=== PATIENT | female | born 1985 | race Caucasian/White ===

== ENCOUNTER → 2017-10-04 | Outpatient (CLI) | payer OTHER ==
[~2017-10-04] MED LIST: MELO15TA6 PO
--- NOTE | 2017-10-04 16:00 | KCIC ---
Indication: Chronic left heel pain. Time of exam 3:37 PM 2 views of the left calcaneus were obtained. The subtalar joint is unremarkable. No calcaneus fracture or stress reaction is identified. The soft tissues are unremarkable. IMPRESSION: No acute feature is detected. Electronically signed by: Maverick Kramer MD (10/04/2017 3:57 PM) [id number]
== END | disposition home or self-care (01) ==
LOC: KCIC 15:20
PROVIDERS: ATTEND Nurse Practitioner Family
DX: M79.672 Pain in left foot (principal)
CPT/HCPCS: 73650

== ENCOUNTER → 2017-12-21 | Outpatient (CLI) | payer OTHER ==
[2017-12-21 08:15] LABS: ADD MAN DIFF? NO
[2017-12-21 08:32] LABS: BASO % 1 % (0-3); EOS # 0.2 x10^3/uL (0.0-0.7); EOS % 3 % (0-3); HEMATOCRIT 38.6 % (36.0-47.0); LYMPH # 2.8 x10^3/uL (1.0-4.8); LYMPH % 37 % (24-48); MEAN CORPUSCULAR HEMOGLOBIN 29 pg (25-35); MEAN CORPUSCULAR HGB CONC 34 g/dL (31-37); MEAN CORPUSCULAR VOLUME 85 fL (79-100); MONO # 0.5 x10^3/uL (0.0-1.1); MONO % 6 % (0-9); NEUT # 4.2 x10^3uL (1.8-7.7); NEUT % 54 % (31-73); PLATELET COUNT 243 x10^3/uL (140-400); RED BLOOD COUNT 4.52 x10^6/uL (3.50-5.40); RED CELL DISTRIBUTION WIDTH 14.1 % (11.5-14.5); WHITE BLOOD COUNT 7.7 x10^3/uL (4.0-11.0)
[2017-12-21 08:51] LABS: ALBUMIN 3.3 g/dL (3.4-5.0); ALBUMIN/GLOBULIN RATIO 0.8 (1.0-1.7); ALK PHOS 68 U/L (46-116); ALT (SGPT) 18 U/L (14-59); ANION GAP 9 (6-14); AST (SGOT) 14 U/L (15-37); BLOOD UREA NITROGEN 15 mg/dL (7-20); BUN/CREATININE RATIO 19 (6-20); CALCIUM 8.3 mg/dL (8.5-10.1); CARBON DIOXIDE 25 mmol/L (21-32); CHLORIDE 107 mmol/L (98-107); CHOLESTEROL 171 mg/dL (0-200); CREATININE 0.8 mg/dL (0.6-1.0); GFR 82.1; GLUCOSE 95 mg/dL (70-99); HDLC 63 mg/dL (40-60); LDLC 79 mg/dL (0-100); NON-HDL CHOLESTEROL 108 mg/dL (0-129); SODIUM 141 mmol/L (136-145); TOTAL BILIRUBIN 0.2 mg/dL (0.2-1.0); TOTAL PROTEIN 7.3 g/dL (6.4-8.2); TRIGLYCERIDES 143 mg/dL (0-150); VLDLC 29 mg/dL (0-40)
[2017-12-21 08:54] LABS: CHOLESTEROL/HDL RATIO 2.7
[2017-12-21 09:03] LABS: THYROID STIM HORMONE (TSH) 2.932 uIU/mL (0.358-3.74)
[2017-12-21 09:03] LABS: FREE T4 1.06 ng/dL (0.76-1.46)
[2017-12-21 09:05] LABS: VITAMIN-B12 538 pg/mL (247-911)
[2017-12-21 09:06] LABS: FOLATE 12.59 ng/ml (3.2-20.0)
[2017-12-21 16:55] LABS: % SAT IRON 11 % (15-34); IRON,SERUM 49 ug/dL (50-170)
== END | disposition home or self-care (01) ==
LOC: LAB 07:49
DX: R53.83 Other fatigue (principal); E11.9 Type 2 diabetes mellitus without complications
CPT/HCPCS: 36415; 80053; 80061; 82306; 82607; 82746; 83540; 83550; 84439; 84443; 85025

== ENCOUNTER → 2017-12-31 | Outpatient (CLI) | payer OTHER | END | disposition home or self-care (01) | LOC: KCIC MRI 15:51 | DX: M47.892 Other spondylosis, cervical region (principal); M50.20 Other cervical disc displacement, unspecified cervical region; G89.29 Other chronic pain | CPT/HCPCS: 72100; 72141 ==

== ENCOUNTER → 2018-01-04 | Outpatient (CLI) | payer OTHER ==
[~2018-01-04] MED LIST changes: +BUPIVACAINE MPF 0.25% 10 ML VIAL.; +IOHEXOL 180 MG/ML 10 ML VIAL.; -MELO15TA6 PO; +methylPREDNISolone ACETATE 80 MG/ML VIAL.
== END | disposition home or self-care (01) ==
LOC: PNCL 09:19
DX: M47.812 Spondylosis without myelopathy or radiculopathy, cervical region (principal); G89.29 Other chronic pain
CPT/HCPCS: 64490; 64491; J1040; J3490; Q9965

== ENCOUNTER → 2018-04-04 | Outpatient (CLI) | payer OTHER ==
[~2018-04-04] MED LIST changes: -BUPIVACAINE MPF 0.25% 10 ML VIAL.; +BUPIVACAINE MPF 0.25% 30 ML VIAL.; +LIDOCAINE 1% PF 2 ML VIAL.; +methylPREDNISolone ACETATE 40 MG/ML VIAL.
== END | disposition home or self-care (01) ==
LOC: PNCL 07:57
DX: M47.812 Spondylosis without myelopathy or radiculopathy, cervical region (principal); Z88.0 Allergy status to penicillin; Z88.1 Allergy status to other antibiotic agents
CPT/HCPCS: 64490; 64491; J1030; J1040; J3490; Q9965

== ENCOUNTER → 2019-01-23 | Outpatient (CLI) | payer OTHER ==
[~2019-01-23] MED LIST changes: -BUPIVACAINE MPF 0.25% 30 ML VIAL.; +CETI10TA22 PO; +CHOL100013 PO; +ERGO500027 PO; -IOHEXOL 180 MG/ML 10 ML VIAL.; +IRON1TAB30 PO; -LIDOCAINE 1% PF 2 ML VIAL.; +MELO15TA6 PO; +NOVA RING; -methylPREDNISolone ACETATE 40 MG/ML VIAL.; -methylPREDNISolone ACETATE 80 MG/ML VIAL.
== END | disposition home or self-care (01) ==
LOC: ONC 10:00
PROVIDERS: ATTEND Nurse Practitioner Family
DX: D50.9 Iron deficiency anemia, unspecified (principal); E55.9 Vitamin D deficiency, unspecified
CPT/HCPCS: 36415; 82306; 83540; 83550

== ENCOUNTER → 2019-07-21 | Outpatient (CLI) | payer OTHER ==
[2019-07-21 08:21] LABS: BASO # 0.1 x10^3/uL (0.0-0.2); BASO % 1 % (0-3); EOS # 0.2 x10^3/uL (0.0-0.7); EOS % 3 % (0-3); HEMATOCRIT 39.2 % (36.0-47.0); HEMOGLOBIN 13.3 g/dL (12.0-15.5); LYMPH # 2.1 x10^3/uL (1.0-4.8); LYMPH % 33 % (24-48); MEAN CORPUSCULAR HEMOGLOBIN 30 pg (25-35); MEAN CORPUSCULAR HGB CONC 34 g/dL (31-37); MEAN CORPUSCULAR VOLUME 88 fL (79-100); MONO # 0.3 x10^3/uL (0.0-1.1); MONO % 4 % (0-9); NEUT # 3.7 x10^3/uL (1.8-7.7); NEUT % 59 % (31-73); PLATELET COUNT 273 x10^3/uL (140-400); RED BLOOD COUNT 4.44 x10^6/uL (3.50-5.40); RED CELL DISTRIBUTION WIDTH 14.4 % (11.5-14.5); WHITE BLOOD COUNT 6.3 x10^3/uL (4.0-11.0)
[2019-07-21 08:56] LABS: CHOLESTEROL/HDL RATIO 2.7
[2019-07-21 09:03] LABS: FREE T4 1.14 ng/dL (0.76-1.46); THYROID STIM HORMONE (TSH) 2.785 uIU/mL (0.358-3.74)
[2019-07-21 17:09] LABS: ESTRADIOL LEVEL 23.1 pg/mL (.); FSH 4.3 mIU/mL (.); PROLACTIN 14.7 ng/mL (4.8-23.3)
== END | disposition home or self-care (01) ==
LOC: LAB 07:49
PROVIDERS: ATTEND Obstetrics & Gynecology
DX: Z01.419 Encounter for gynecological examination (general) (routine) without abnormal findings (principal); R63.5 Abnormal weight gain; R23.2 Flushing
CPT/HCPCS: 36415; 80061; 82670; 83001; 84146; 84439; 84443; 85025

== ENCOUNTER 2019-08-11 16:34 | Emergency (ER) | payer OTHER ==
[~2019-08-11] VITALS: Ht 167.6 cm; Wt 89.4 kg
[2019-08-11 17:23] LABS: BILIRUBIN,URINE NEGATIVE (NEG); CLARITY,URINE CLEAR; COLOR,URINE YELLOW; NITRITE,URINE NEGATIVE (NEG); PROTEIN,URINE NEGATIVE (NEG-TRACE); UROBILINOGEN,URINE 0.2 mg/dL (0.2 mg/dL)
[2019-08-11 17:29] LABS: BACTERIA,URINE FEW /HPF (0-FEW); RBC,URINE 0 /HPF (0-2); SQUAMOUS EPITHELIAL CELL,UR FEW /LPF; WBC,URINE OCC /HPF (0-4)
[2019-08-11] MEDS ORDERED: diphenhydrAMINE 50 MG/ML VIAL IVP ONE (17:45)
[2019-08-11] MEDS ORDERED: KETOROLAC 15 MG/ML VIAL. IV ONE (17:45)
[2019-08-11] MEDS ORDERED: PROCHLORPERAZINE 10 MG/2 ML VIAL. IV ONE (17:45)
[2019-08-11] MEDS ORDERED: IV NORMAL SALINE 1000ML BAG 1,000 ML IV ONE (17:45)
--- NOTE | 2019-08-11 18:15 | PHYS DOC ---
Past Medical History Past Medical History: No Pertinent History (REYES CHAUDHARY APRN) Past Surgical History: Appendectomy, Tonsillectomy (REYES CHAUDHARY APRN) Alcohol Use: Occasionally Drug Use: None (REYES CHAUDHARY APRN) Adult General Chief Complaint Chief Complaint: HEADACHE HPI HPI Patient is a 33 year old female who presents to the emergency department with complaints of a diffuse headache that she describes as sharp and diffuse. Patient states that she has had a headache since 11:00 this morning, she tried taking a gram of Tylenol at 1:30 PM with some relief of her symptoms. She denies any vision changes, difficulties with speech, vomiting, numbness, tingling, or weakness. She states she has experienced nausea and has felt lightheaded with the pain. Patient states that her entire body feels like it is tense. Currently she rates her pain a 8 out of 10 on the pain scale, there are no exacerbating factors. States she has been very thirsty since beginning the phentermine for weight loss. (REYES CHAUDHARY APRN) Review of Systems Review of Systems Constitutional: Denies fever or chills [] Eyes: Denies change in visual acuity, redness, or eye pain [] HENT: Denies nasal congestion or sore throat [] Respiratory: Denies cough or shortness of breath [] Cardiovascular: No additional information not addressed in HPI [] GI: Denies abdominal pain, vomiting, bloody stools or diarrhea; see HPI Musculoskeletal: Denies back pain or joint pain [] Integument: Denies rash or skin lesions [] Neurologic: Denies focal weakness or sensory changes; see HPI Endocrine: denies polydipsia Complete systems were reviewed and found to be within normal limits, except as documented in this note. (REYES CHAUDHARY APRN) Current Medications Current Medications Current Medications Medications (Trade) Dose Ordered Sig/Bala Start Time Stop Time Status Last Admin Dose Admin Diphenhydramine HCl (Benadryl) 25 mg 1X ONCE 08/11/19 17:45 08/11/19 18:03 DC 08/11/19 18:22 25 MG Ketorolac Tromethamine (Toradol 15mg Vial) 15 mg 1X ONCE 08/11/19 17:45 10/25/19 18:03 DC 08/11/19 18:20 15 MG Prochlorperazine Edisylate (Compazine) 10 mg 1X ONCE 08/11/19 17:45 08/11/19 18:03 DC 08/11/19 18:24 10 MG Sodium Chloride 1,000 ml @ 1,000 mls/hr 1X ONCE 08/11/19 17:45 08/11/19 18:44 DC 08/11/19 18:17 1,000 MLS/HR (DOMENIC TORRES DO) Allergies Allergies Allergies Coded Allergies Type Severity Reaction Last Updated Verified Penicillins Allergy Intermediate 01/17/16 Yes Sulfa (Sulfonamide Antibiotics) Allergy Intermediate Rash 01/17/16 Yes cefaclor Allergy Intermediate Rash 01/17/16 Yes erythromycin base Adverse Reaction Intermediate Nausea and Vomiting 01/17/16 Yes (DOMENIC TORRES DO) Physical Exam Physical Exam Constitutional: Well developed, well nourished, no acute distress, non-toxic appearance. [] HENT: Normocephalic, atraumatic, bilateral external ears normal, oropharynx moist, no oral exudates, nose normal. [] Eyes: PERRLA, EOMI, conjunctiva normal, no discharge. [] Neck: Normal range of motion, no stridor. [] Cardiovascular:Heart rate regular rhythm, no murmur [] Lungs & Thorax: Bilateral breath sounds clear to auscultation [] Skin: Warm, dry, no erythema, no rash. [] Back: No tenderness, no CVA tenderness. [] Extremities: No tenderness, no cyanosis, no clubbing, ROM intact, no edema. [] Neurologic: Alert and oriented X 3, normal motor function, normal sensory function, no focal deficits noted. [] Psychologic: Affect normal, judgement normal, mood normal. [] (REYES CHAUDHARY APRN) Current Patient Data Vital Signs Vital Signs Date Time Temp Pulse Resp B/P (MAP) Pulse Ox O2 Delivery O2 Flow Rate FiO2 08/11/19 19:01 79 96 08/11/19 17:00 98.2 20 127/93 (104) Room Air 98.2 (DOMENIC TORRES DO) Lab Values Laboratory Tests Test 08/11/19 16:40 08/11/19 18:00 Urine Collection Type Unknown Urine Color Yellow Urine Clarity Clear Urine pH 7.0 Urine Specific Theresa 1.010 Urine Protein Negative mg/dL (NEG-TRACE) Urine Glucose (UA) Negative mg/dL (NEG) Urine Ketones (Stick) 40 mg/dL (NEG) Urine Blood Negative (NEG) Urine Nitrite Negative (NEG) Urine Bilirubin Negative (NEG) Urine Urobilinogen Dipstick 0.2 mg/dL (0.2 mg/dL) Urine Leukocyte Esterase Negative (NEG) Urine RBC 0 /HPF (0-2) Urine WBC Occ /HPF (0-4) Urine Squamous Epithelial Cells Few /LPF Urine Bacteria Few /HPF (0-FEW) Urine Test Negative (NEG) White Blood Count 10.7 x10^3/uL (4.0-11.0) Red Blood Count 4.53 x10^6/uL (3.50-5.40) Hemoglobin 13.5 g/dL (12.0-15.5) Hematocrit 39.5 % (36.0-47.0) Mean Corpuscular Volume 87 fL (79-100) Mean Corpuscular Hemoglobin 30 pg (25-35) Mean Corpuscular Hemoglobin Concent 34 g/dL (31-37) Red Cell Distribution Width 13.2 % (11.5-14.5) Platelet Count 275 x10^3/uL (140-400) Neutrophils (%) (Auto) 76 % (31-73) H Lymphocytes (%) (Auto) 20 % (24-48) L Monocytes (%) (Auto) 4 % (0-9) Eosinophils (%) (Auto) 1 % (0-3) Basophils (%) (Auto) 0 % (0-3) Neutrophils # (Auto) 8.1 x10^3/uL (1.8-7.7) H Lymphocytes # (Auto) 2.1 x10^3/uL (1.0-4.8) Monocytes # (Auto) 0.4 x10^3/uL (0.0-1.1) Eosinophils # (Auto) 0.1 x10^3/uL (0.0-0.7) Basophils # (Auto) 0.0 x10^3/uL (0.0-0.2) Sodium Level 141 mmol/L (136-145) Potassium Level 4.0 mmol/L (3.5-5.1) Chloride Level 105 mmol/L (98-107) Carbon Dioxide Level 24 mmol/L (21-32) Anion Gap 12 (6-14) Blood Urea Nitrogen 10 mg/dL (7-20) Creatinine 0.8 mg/dL (0.6-1.0) Estimated GFR (Cockcroft-Gault) 81.6 BUN/Creatinine Ratio 13 (6-20) Glucose Level 94 mg/dL (70-99) Calcium Level 8.6 mg/dL (8.5-10.1) Magnesium Level 1.9 mg/dL (1.8-2.4) Total Bilirubin 0.3 mg/dL (0.2-1.0) Aspartate Amino Transferase (AST) 20 U/L (15-37) Alanine Aminotransferase (ALT) 23 U/L (14-59) Alkaline Phosphatase 63 U/L (46-116) Total Protein 7.5 g/dL (6.4-8.2) Albumin 3.6 g/dL (3.4-5.0) Albumin/Globulin Ratio 0.9 (1.0-1.7) L Laboratory Tests 08/11/19 18:00 Laboratory Tests 08/11/19 18:00 (DOMENIC TORRES DO) EKG EKG [] (REYES CHAUDHARY APRN) Radiology/Procedures Radiology/Procedures [] (REYES CHAUDHARY APRN) Course & Med Decision Making Course & Med Decision Making Pertinent Labs and Imaging studies reviewed. (See chart for details) dx: migraine 1858- Pt reports complete relief of sx after medications. She denies any complaints at this time. CT has not been completed, will cancel CT per PT request and since symptoms resolved completely. Pt instructed to stop taking Phentermine. Will prescribe Fiorcet prn Headaches. Follow up with Primary care doctor next week. Return to the ER if symptoms return. VSS PT verbalized an understanding of home care, medications, follow-up, and return to ED instructions and was in agreement with the plan of care. [] (REYES CHAUDHARY APRN) Dragon Disclaimer Dragon Disclaimer This electronic medical record was generated, in whole or in part, using a voice recognition dictation system. (REYES CHAUDHARY APRN) Departure Departure Impression: Primary Impression: Migraine Disposition: 01 HOME, SELF-CARE Condition: STABLE Referrals: MUMTAZ YEE APRN (PCP) Patient Instructions: Migraine Headache, [id number] Additional Instructions: Fill prescription and use as needed for pain. Follow up with your primary care doctor next week. STOP TAKING PHENTERMINE. Increase clear fluids, home to rest. Return to the ER if symptoms return or worsen. Scripts Butalb/Acetaminophen/Caffeine ([id number] 50-325-40) 1 Each Tablet 1-2 EACH PO Q4HRS PRN for PAIN MDD 6 tabs for 3 Days, #18 TAB 0 Refills Prov: REYES CHAUDHARY APRN 08/11/19 Attending Signature Attending Signature I have reviewed the PA/[employer] ATTENDANT's note and plan of care. I was available for consultation as needed during the patient's visit in the emergency department. I agree with the clinical impression, plan, and disposition. (DOMENIC TORRES DO) Problem Qualifiers Primary Impression: Migraine Migraine type: unspecified Status migrainosus presence: without status migrainosus Intractability: not intractable Qualified Codes: G43.909 - Migraine, unspecified, not intractable, without status migrainosus REYES CHAUDHARY APRN Aug 11, 2019 18:15 DOMENIC TORRES DO Aug 12, 2019 05:28
[2019-08-11 18:21] LABS: BASO % 0 % (0-3); EOS # 0.1 x10^3/uL (0.0-0.7); EOS % 1 % (0-3); HEMATOCRIT 39.5 % (36.0-47.0); HEMOGLOBIN 13.5 g/dL (12.0-15.5); LYMPH # 2.1 x10^3/uL (1.0-4.8); LYMPH % 20 % (24-48); MEAN CORPUSCULAR HEMOGLOBIN 30 pg (25-35); MEAN CORPUSCULAR HGB CONC 34 g/dL (31-37); MEAN CORPUSCULAR VOLUME 87 fL (79-100); MONO # 0.4 x10^3/uL (0.0-1.1); MONO % 4 % (0-9); NEUT # 8.1 x10^3/uL (1.8-7.7); NEUT % 76 % (31-73); PLATELET COUNT 275 x10^3/uL (140-400); RED BLOOD COUNT 4.53 x10^6/uL (3.50-5.40); RED CELL DISTRIBUTION WIDTH 13.2 % (11.5-14.5); WHITE BLOOD COUNT 10.7 x10^3/uL (4.0-11.0)
[2019-08-11 18:30] LABS: CALCIUM 8.6 mg/dL (8.5-10.1); CREATININE 0.8 mg/dL (0.6-1.0); GFR 81.6
[2019-08-11 18:35] LABS: ALBUMIN 3.6 g/dL (3.4-5.0); ALBUMIN/GLOBULIN RATIO 0.9 (1.0-1.7); MAGNESIUM 1.9 mg/dL (1.8-2.4); TOTAL BILIRUBIN 0.3 mg/dL (0.2-1.0); TOTAL PROTEIN 7.5 g/dL (6.4-8.2)
[2019-08-11 19:01] VITALS: BP 117/68
[2019-08-11 19:02] LABS: U PREG PATIENT NEGATIVE (NEG)
[2019-08-11] MEDS ORDERED: BUTA1TAB23 PO (19:08)
== END 2019-08-11 19:20 | disposition home or self-care (01) ==
LOC: ER 16:34
DX: G43.909 Migraine, unspecified, not intractable, without status migrainosus (principal); R42 Dizziness and giddiness; Z88.0 Allergy status to penicillin; Z88.1 Allergy status to other antibiotic agents; Z88.2 Allergy status to sulfonamides
CPT/HCPCS: 36415; 80053; 81001; 81025; 83735; 85025; 96361; 96374; 96375; 99284; J0780; J1200; J1885; J7030; 99285-25

== ENCOUNTER → 2020-10-04 | Outpatient (CLI) | payer OTHER ==
[~2020-10-04] MED LIST changes: +BUPIVACAINE MPF 0.25% 10 ML VIAL. ONE; +BUTA1TAB23 PO; -CETI10TA22 PO; +CETI10TA74 PO; +CYCL10TA2 PO; +SUMA100T4 PO; +methylPREDNISolone ACETATE 40 MG/ML VIAL. ONE
--- NOTE | 2020-10-04 12:37 | PDOC ---
Progress Note - Pain Clinic Date of Service: DOS: DATE: 10/04/20 TIME: 12:31 Diagnosis: Dx: Cervicalgia with cervical spondylosis Myofascial pain History or Present Illness: HPI: 35-year female returns follow-up status post right cervical facet injections March 2018. Patient ports did very well with near 100% improvement after the injections her chief complaint today however is a different pain in the base the neck and left shoulder and upper back patient reports is been going on for few months now not the result of any specific injury or accident that she is aware of but is becoming more uncomfortable difficulty with sleeping at night especially on her left side is waking her up from sleep also pain in the base of the neck and left upper back and shoulder posteriorly and superiorly. Patient reports is a 10 on scale 10 is worse over the past week 10 on average 7 its least is a 10 today patient wanted sharp and shooting tingling some in the left hand and shoulder as well as a burning sensation in the back of the neck and up per shoulder on the left stabbing and can be severe and very burning and hot feeling as well. Patient has been doing some stretching also has been chiropractic therapy and acupuncture done 3 times without significant reduction in pain for more than just an hour or 2. Patient ports no motor loss in the dropping of items or difficulty with deficits in the left upper extremity. Physical Exam: VS: Blood pressure is 132/70 pulse 76 respirations 18 temperature 90.1 F height is 5 foot 6 inches weight is 206 pounds PE: PHYSICAL EXAMINATION: GENERAL: The patient is awake, alert, oriented, appropriate, very pleasant demeanor HEENT: Shows normocephalic, atraumatic. Extraocular movements are intact and symmetrical. Oral cavity: Mucous membranes moist and pink. Dentition is intact. NECK: Shows anterior throat supple without palpable lymphadenopathy noted. Swallow reflex symmetrical. CHEST: Shows normal on inspection. Breath sounds are clear bilaterally, no r ales or rhonchi. HEART: Shows S1, S2 clear. No murmurs auscultated. ABDOMEN: Soft, nontender, nondistended, obese. No palpable organomegaly is noted. No rebound or guarding demonstrated. BACK: Shows spine grossly in the midline. Normal-appearing cervical lordotic curvature. Cervical paraspinous but shows symmetrical with inspection on palpation some very firm ropelike musculature more tender on the left than the right, but very firm ropelike musculature bilaterally consistent with areas of trigger point musculature. Patient's left trapezius shows similar areas of very firm ropelike musculature consistent with trigger point areas of muscle as well. Patient shows good rotation motion cervical spine however both laterally as well as extension flexion without significant increase in pain with some moderate pain with forward flexion and stretching in the left base of the neck and left upper shoulder. No radiation is demonstrated with palpation but very firm ropelike musculature in the left trapezius as well as the supraspinatus and the rhomboid musculature but nontender on the right in these muscle groups. There is slightly increased thoracic kyphosis, some minor flattening of the lumbar lordotic curvature. EXTREMITIES: Upper extremities show deep tendon reflexes 2+ in the biceps and tricep tendons. Motor exam is 5 on a scale of 5 with right rib strength, biceps and triceps flexion and 5/5 on the left. Peripheral pulses are 2+ radial. No peripheral edema is noted bilaterally. Upper extremities are warm and dry to touch, equal in color and appearance. SKIN: Shows warm and dry, good turgor. No edema. No sores, rashes or bruising throughout. Procedure: Procedure: Discussed with the patient. Patient chart was reviewed as her current medication regimen updated and current review of systems updated today as well. We will proceed with trigger point injections of the identified musculature. Risks were discussed including but not limited to bleeding infection possibility of intravascular injection sequelae spread local anesthetic and numbness pneumothorax side effects of steroid medication and poor results regarding pain control. Patient understands wished to proceed. Patient will return to clinic in approximately 2 weeks or as necessary and would like to call for next appointment as needed. Medication Injected: Med Injected: Under sterile prep and drape patient's neck and shoulders were sterilely prepped and trigger points were identified in the posterior cervical musculature bilaterally as well as the left trapezius left rhomboid and left supraspinatus musculature injected using a 25-gauge needle after negative aspiration each injection site with 1 cc of 0.25% bupivacaine and a total of 40 mg Depo-Medrol and 8 cc total of 0.25% bupivacaine. Patient tolerated procedure well and had no complications. Condition at Discharge: Condition at Discharge: Condition at discharge stable, patient alert procedure well and had no complications. MAXIMILIANO CONLEY MD Oct 04, 2020 12:37
== END | disposition home or self-care (01) ==
LOC: PNCL 11:19
PROVIDERS: ATTEND Anesthesiology
DX: M54.2 Cervicalgia (principal); M79.18 Myalgia, other site; M47.812 Spondylosis without myelopathy or radiculopathy, cervical region; E11.9 Type 2 diabetes mellitus without complications; D50.9 Iron deficiency anemia, unspecified; G43.909 Migraine, unspecified, not intractable, without status migrainosus; Z88.0 Allergy status to penicillin; Z88.2 Allergy status to sulfonamides; Z88.8 Allergy status to other drugs, medicaments and biological substances; Z88.1 Allergy status to other antibiotic agents; Z79.899 Other long term (current) drug therapy
CPT/HCPCS: 20553; J1030; J3490

== ENCOUNTER → 2021-04-22 | Outpatient (CLI) | payer OTHER ==
[~2021-04-22] MED LIST changes: -BUPIVACAINE MPF 0.25% 10 ML VIAL. ONE; +CALC600T60 PO; +CYCL10TA19 PO; -CYCL10TA2 PO; +MULT-245 PO; +OMEG1CAP38 PO; +PANT20TA2 PO; -methylPREDNISolone ACETATE 40 MG/ML VIAL. ONE
[2021-04-22 08:36] LABS: HEMATOCRIT 39.3 % (36.0-47.0); HEMOGLOBIN 13.4 g/dL (12.0-15.5); RED BLOOD COUNT 4.52 x10^6/uL (3.50-5.40); RED CELL DISTRIBUTION WIDTH 12.8 % (11.5-14.5); WHITE BLOOD COUNT 10.1 x10^3/uL (4.0-11.0)
[2021-04-22 08:56] LABS: ALBUMIN 3.6 g/dL (3.4-5.0); ALBUMIN/GLOBULIN RATIO 1.1 (1.0-1.7); CALCIUM 8.8 mg/dL (8.5-10.1); CREATININE 0.9 mg/dL (0.6-1.0); GFR 70.5; POTASSIUM 4.2 mmol/L (3.5-5.1); TOTAL BILIRUBIN 0.3 mg/dL (0.2-1.0)
[2021-04-22 08:57] LABS: CHOLESTEROL/HDL RATIO 3.9
[2021-04-22 09:33] LABS: FREE T4 1.22 ng/dL (0.76-1.46); THYROID STIM HORMONE (TSH) 2.344 uIU/mL (0.358-3.74)
== END ==
LOC: LAB 08:20
PROVIDERS: ATTEND Nurse Practitioner Family
DX: E55.9 Vitamin D deficiency, unspecified (principal); F41.9 Anxiety disorder, unspecified; D50.9 Iron deficiency anemia, unspecified; Z68.34 Body mass index [BMI] 34.0-34.9, adult
CPT/HCPCS: 36415; 80053; 80061; 82306; 82607; 82746; 83540; 83550; 84439; 84443; 85027

== ENCOUNTER → 2021-05-15 | Outpatient (CLI) | payer OTHER ==
[~2021-05-15] MED LIST changes: +BUPIVACAINE MPF 0.25% 10 ML VIAL. ONE; -CYCL10TA19 PO; +CYCL10TA2 PO; +IOHEXOL 180 MG/ML 10 ML VIAL. ONE; +methylPREDNISolone ACETATE 40 MG/ML VIAL. ONE; +methylPREDNISolone ACETATE 80 MG/ML VIAL. ONE
--- NOTE | 2021-05-15 08:22 | PDOC ---
Progress Note - Pain Clinic Date of Service: DOS: DATE: 05/15/21 TIME: 08:17 Diagnosis: Dx: Cervicalgia with cervical spondylosis Myofascial pain History or Present Illness: HPI: 35-year-old female returns for follow-up status post cervical facet injections 2017 as well as trigger point injections in 2019 patient did very well with the 7-year 100% improvement for several months following the injection patient ports pain began to return over the past 3 to 4 weeks in the base the neck bilaterally into the left shoulder left upper back and left posterior shoulder and some on the right but mostly on the left side patient reports initially doing much better distance walking doing household activities and work activities travel with greater ease and comfort. Patient rates her pain now as a 9 on scale 10 is worse over the past week 7 on average 3 its least is a 7 today patient ports sharp tight can be shooting stabbing in the base the neck and shoulder especially on the left side with activity repetitive motions lifting items even sitting for prolonged periods or using computer keyboard with her left hand. Patient reports generally is better with laying down does not awaken her from sleep at night. Patient reports no new motor or sensory deficits no bowel or bladder incontinence or other complaints. Physical Exam: VS: Blood pressure is 151/99 pulse 78 respirations 18 temperature 98.4 F height is 5 feet 6 inches weight is 210 pounds PE: PHYSICAL EXAMINATION: GENERAL: The patient is awake, alert, oriented, appropriate, very pleasant in demeanor HEENT: Shows normocephalic, atraumatic. Extraocular movements are intact and symmetrical. Oral cavity: Mucous membranes moist and pink. Dentition is intact. NECK: Shows anterior throat supple without palpable lymphadenopathy noted. Swallow reflex symmetrical. CHEST: Shows normal on inspection. Breath sounds are clear bilaterally, no rales rhonchi or wheezes auscultated. HEART: Shows S1, S2 clear. No murmurs auscultated. ABDOMEN: Soft, nontender, nondistended, obese. No palpable organomegaly is noted. BACK: Shows spine grossly in the midline. Normal-appearing cervical lordotic curvature. There is slightly increased thoracic kyphosis, some minor flattening of the lumbar lordotic curvature. Cervical and thoracic paraspinous muscles show symmetrical inspection with palpation some significant tenderness and very firm ropelike musculature in the bilateral superior middle and inferior aspect of the cervical paraspinous muscles into the left trapezius superior medial as well as lateral aspect also very firm ropelike musculature in the thoracic paraspinous musculature on the left on the right side very firm ropelike muscular consistent with trigger point areas musculature without specific radiation this treatment to the supra spinatus and infraspinatus musculature on the left as well but not the right. Lumbar paraspinous muscles show symmetrical on inspection, on palpation shows some moderate tenderness diffusely throughout the upper, middle and lower distribution of the paraspinous muscles without specific trigger points, without radiation of pain. The patient has good rotational motion of the lumbar spine, both laterally as well as extension and flexion without significant difficulty. No tenderness over the spinous processes, sacrum or sacroiliac regions. EXTREMITIES: Lower extremities show deep tendon reflexes 2 in the patellar and tendo calcaneus tendons. Motor exam is 5 on a scale of 5 with right dorsiflexion, extension, quadriceps and hamstring flexion and 5/5 on the left. Peripheral pulses are 1 posterior tibial. No peripheral edema is noted jesse aterally. Lower extremities are warm and dry to touch, equal in color and appearance. SKIN: Shows warm and dry, good turgor. No edema. No sores, rashes or bruising throughout. Procedure: Procedure: Options were discussed with the patient. Patient chart reviews her current medication regimen updated current review of systems updated today as well. We will proceed with trigger point injections of the bilateral cervical paraspinous posterior bilateral trapezius musculature left rhomboid musculature left thoracic paraspinous musculature. Risk for discussed including but not limited to bleeding infection possibility of intravascular injection and sequelae spread of local anesthetic numbness pneumothorax side effects of steroid medication and portals regarding pain control. Patient understands wished to proceed. Patient return to clinic in approximate 4 weeks or as necessary was counseled as return appointment activity level and side effects to be aware of. Medication Injected: Med Injected: Patient sitting position under sterile prep and drape, patient cervical par aspinous musculature bilaterally, posterior trapezius musculature bilaterally, left suprascapular infrascapular musculature and thoracic paraspinous posture were prepped and draped in usual fashion. Trigger point areas were identified in the bilateral cervical paraspinous posterior bilateral trapezius muscular left rhomboid musculature left thoracic paraspinous musculature. Using 25-gauge needle after negative aspiration each injection site total amount of bupivacaine 10 cc and 40 mg total Depo-Medrol were utilized. Patient tolerated the procedure well had no complications. Condition at Discharge: Condition at Discharge: Condition at discharge stable, he tolerated procedure well and had no complications. MAXIMILIANO CONLEY MD May 15, 2021 08:22
--- NOTE | 2021-05-15 08:23 | PDOC4 ---
Procedure Note: ICD 10 Code: ICD 10 Code: M 60.89 Procedure Note: Patient was consented for trigger point injections. Risk were discussed including but not limited to bleeding infection possibility of intravascular injection and sequelae spread of local anesthetic and numbness side effects steroid medication pneumothorax and portals regarding pain control. Patient understands wished to proceed. Patient sitting position under sterile prep and drape, patient cervical paraspinous musculature bilaterally, posterior trapezius musculature bilaterally, left suprascapular infrascapular musculature and thoracic paraspinous posture were prepped and draped in usual fashion. Trigger point areas were identified in the bilateral cervical paraspinous posterior bilateral trapezius muscular left rhomboid musculature left thoracic paraspinous musculature. Using 25-gauge needle after negative aspiration each injection site total amount of bupivacaine 10 cc and 40 mg total Depo-Medrol were utilized. Patient tolerated the procedure well had no complications. MAXIMILIANO CONLEY MD May 15, 2021 08:23
== END | disposition home or self-care (01) ==
LOC: PNCL 07:41
PROVIDERS: ATTEND Anesthesiology
DX: M47.812 Spondylosis without myelopathy or radiculopathy, cervical region (principal); M79.18 Myalgia, other site; Z79.899 Other long term (current) drug therapy; Z88.0 Allergy status to penicillin; Z88.1 Allergy status to other antibiotic agents; Z88.2 Allergy status to sulfonamides; Z88.8 Allergy status to other drugs, medicaments and biological substances; Z72.89 Other problems related to lifestyle
CPT/HCPCS: 20553; J1030; J1040; J3490; Q9965

== ENCOUNTER → 2022-02-16 | Outpatient (CLI) | payer OTHER ==
[~2022-02-16] MED LIST changes: -BUPIVACAINE MPF 0.25% 10 ML VIAL. ONE; +CYCL10TA19 PO; -CYCL10TA2 PO; -IOHEXOL 180 MG/ML 10 ML VIAL. ONE; -methylPREDNISolone ACETATE 40 MG/ML VIAL. ONE; -methylPREDNISolone ACETATE 80 MG/ML VIAL. ONE
--- NOTE | 2022-02-16 15:37 | PDOC4 ---
Procedure Note: ICD 10 Code: ICD 10 Code: M60.89 M4 7.812 Procedure Note: Patient was consented for trigger point injections bilateral cervical paraspinous posterior bilateral trapezius musculature right suprascapular and infrascapular muscular and right rhomboid musculature. Risk were discussed including but not limited to bleeding infection possibility of intravascular injection sequelae spread local anesthetic numbness pneumothorax side effects steroid medication and poor results regarding pain control. Patient understands wishes to proceed. In sitting position under sterile prep and drape trigger points were identified in the right superior cervical paraspinous musculature, middle paraspinous musculature, inferior cervical paraspinous muscular as well as the bilateral trapezius musculature right rhomboid musculature right suprascapular scapular and infrascapular musculature using a 25-gauge needle at each injection site after negative aspiration at each site total of 12 cc 0.25% bupivacaine and total of 10 mg dexamethasone was then injected. Sterile bandages were applied patient tolerated procedure well had no complications. MAXIMILIANO CONLEY MD February 16, 2022 15:37
--- NOTE | 2022-02-16 15:37 | PDOC ---
Progress Note - Pain Clinic Date of Service: DOS: DATE: 02/16/22 TIME: 15:30 Diagnosis: Dx: Cervical spondylosis with cervicalgia Myofascial pain History or Present Illness: HPI: 36-year-old female returns today last seen May 15, 2021 patient did very well after cervical facet injection is in trigger point injections patient reports that the right side of the neck is now more painful than the left since her last visit the left side of the neck and shoulder and upper back was very stiff and tight now it is the right side mainly in the base of the neck and shoulder as well as the base of the skull on the right side into the upper scapular region of the posterior shoulder on the right patient reports no new injury or accident beginning tight for several months now but after the last injections had 100% improvement until just about 1 to 2 months ago patient reports it is sharp and shooting stabbing radiating base of neck and shoulder into the lateral shoulder on the right into the inferior aspect of the neck as well as the superior aspect of the upper back and scapular region on the right patient reports very minimal pain on the left side except for some in the trapezius patient reports her pain is a 9 on scale 10 is worse over the past week 5 on average 2 to [place] is a 5 today. Patient reports no loss of motor function significant stiffness described as aching and dull pain stabbing can be radiating burning in the right posterior shoulder as well as the base the neck and base of the skull on the right as well. Patient's been taking [id number] ibuprofen as well as Tylenol and cyclobenzaprine without significant long-term reduction of pain. Physical Exam: VS: Blood pressure is 120/89 pulse 74 respirations 18 temperature is 98.2 F weight is 211 pounds. PE: PHYSICAL EXAMINATION: GENERAL: The patient is awake, alert, oriented, appropriate, very pleasant in demeanor HEENT: Shows normocephalic, atraumatic. Extraocular movements are intact and symmetrical. Oral cavity: Mucous membranes moist and pink. Dentition is intact. NECK: Shows anterior throat supple without palpable lymphadenopathy noted. Swallow reflex symmetrical. CHEST: Shows normal on inspection. Breath sounds are clear bilaterally. HEART: Shows S1, S2 clear. No murmurs auscultated. ABDOMEN: Soft, nontender, nondistended. No palpable organomegaly is noted. BACK: Shows spine grossly in the midline. Normal-appearing cervical lordotic curvature. Cervical paraspinous muscles show symmetrical with inspection, on palpation some significant tenderness in the superior aspect of the right cervical paraspinous posterior mid cervical paraspinous posterior and lower paraspinous muscles are also into the superior trapezius as well as significant tenderness on the left superior medial trapezius with very firm ropelike musculature throughout the cervical distribution on the right and the bilateral trapezius musculature very firm ropelike tenderness consistent with trigger point areas also in the lateral trapezius on the right into the rhomboid of the right as well as the suprascapular and infrascapular musculature very firm ropelike musculature again consistent with trigger point areas on the right side left side is more supple without specific trigger points in the supra or infrascapular distributions with the rhomboid, unlike the right. There is slightly increased thoracic kyphosis, some minor flattening of the lumbar lordotic curvature. Lumbar paraspinous muscles show symmetrical on inspection, on palpation shows some moderate tenderness diffusely throughout the upper, middle and lower distribution of the paraspinous muscles without specific trigger points, without radiation of pain. The patient has good rotational motion of the lumbar spine, both laterally as well as extension and flexion without significant difficulty. No tenderness over the spinous processes, sacrum or sacroiliac regions. 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 Lower extremities show deep tendon reflexes 2+ in the patellar and tendocalcaneus tendons, motor exam strong with dorsiflexion extension quadricep and hamstring flexion and equal and symmetrical. SKIN: Shows warm and dry, good turgor. No edema. No sores, rashes or bruising throughout. Procedure: Procedure: Options were discussed with patient. Patient's old chart was reviewed as her current medication regimen updated current review of systems updated today as well. We will proceed with trigger point injections of the identified musculature right sided cervical paraspinous posterior right-sided trapezius left-sided trapezius right supra and infrascapular musculature as well as right rhomboid musculature. Risk were discussed including but not limited to bleeding infection possibility of intravascular injection and sequelae spread local anesthetic and numbness, pneumothorax, side effects of steroid medication and poor results regarding pain control. Patient understands agrees, patient will follow up in approximately 4 weeks or sooner as necessary. Medication Injected: Med Injected: In sitting position under sterile prep and drape trigger points were identified in the right superior cervical paraspinous musculature, middle paraspinous musculature, inferior cervical paraspinous muscular as well as the bilateral trapezius musculature right rhomboid musculature right suprascapular scapular and infrascapular musculature using a 25-gauge needle at each injection site after negative aspiration at each site total of 12 cc 0.25% bupivacaine and total of 10 mg dexamethasone was then injected. Sterile bandages were applied patient tolerated procedure well had no complications. Condition at Discharge: Condition at Discharge: Condition at discharge is stable, paced tolerated the procedure well had no complications. MAXIMILIANO CONLEY MD February 16, 2022 15:37
== END | disposition home or self-care (01) ==
LOC: PNCL 14:41
PROVIDERS: ATTEND Anesthesiology
DX: M47.812 Spondylosis without myelopathy or radiculopathy, cervical region (principal); M79.18 Myalgia, other site; Z79.899 Other long term (current) drug therapy; Z88.0 Allergy status to penicillin; Z88.1 Allergy status to other antibiotic agents; Z88.2 Allergy status to sulfonamides; Z88.8 Allergy status to other drugs, medicaments and biological substances
CPT/HCPCS: 20553